=== PATIENT | male | born 1955 | race Caucasian/White ===

== ENCOUNTER 2017-02-14 08:00 | Outpatient (CLI) | payer MEDICAID | END 2017-02-14 08:01 | disposition home or self-care (01) | DX: I25.10 Atherosclerotic heart disease of native coronary artery without angina pectoris (principal); E78.5 Hyperlipidemia, unspecified; R73.9 Hyperglycemia, unspecified ==

== ENCOUNTER 2017-07-11 16:19 | Outpatient (CLI) | payer MEDICAID | END 2017-07-11 16:20 | disposition short-term general hospital (02) | LOC: EMS 16:19 | PROVIDERS: ATTEND Surgery | DX: R07.9 Chest pain, unspecified (principal); R11.0 Nausea; R42 Dizziness and giddiness; R61 Generalized hyperhidrosis | CPT/HCPCS: A0170; A0425; A0433 ==

== ENCOUNTER 2018-03-06 09:03 | Outpatient (CLI) | payer MEDICAID ==
[2018-03-06 12:46] LABS: BASOPHILS % (AUTO) 0.7 %; EOSINOPHILS # (AUTO) 0.1 10^3/uL (0.0-0.7); EOSINOPHILS % (AUTO) 1.9 %; HGB - HEMOGLOBIN 15.1 g/dL (14.0-18.0); LYMPHOCYTES # (AUTO) 1.6 10^3/uL (1.5-3.5); LYMPHOCYTES % (AUTO) 29.4 %; MEAN CORPUSCULAR HEMOGLOBIN 30.8 pg (27.0-31.0); MEAN CORPUSCULAR HGB CONC 33.5 g/dL (32.0-36.0); MEAN CORPUSCULAR VOLUME 91.9 fL (80.0-94.0); MEAN PLATELET VOLUME 8.5 fL (7.4-11.4); MONOCYTES # (AUTO) 0.7 10^3/uL (0.0-1.0); MONOCYTES % (AUTO) 12.5 %; NEUTROPHILS # (AUTO) 3.1 10^3/uL (1.5-6.6); NEUTROPHILS % (AUTO) 55.5 %; PLT - PLATELET COUNT 253 10^3/uL (130-450); RED BLOOD COUNT 4.92 10^6/uL (4.70-6.10); RED CELL DISTRIBUTION WIDTH 13.7 % (12.0-15.0); WHITE BLOOD COUNT 5.6 x10^3/uL (4.8-10.8)
[2018-03-06 12:54] LABS: ALBUMIN 4.6 g/dL (3.2-5.5); ALBUMIN/GLOBULIN RATIO 1.6 (1.0-2.2); ALKALINE PHOSPHATASE 55 IU/L (42-121); ALT ALANINE AMINOTRANSFERASE 27 IU/L (10-60); AST ASPARTATE AMINOTRANSFERASE 29 IU/L (10-42); BILIRUBIN,TOTAL 1.3 mg/dL (0.2-1.0); BUN - BLOOD UREA NITROGEN 20 mg/dL (6-20); CALCIUM 9.2 mg/dL (8.5-10.3); CARBON DIOXIDE - CO2 28 mmol/L (21-32); CHLORIDE 99 mmol/L (101-111); CHOL/HDL RATIO 3.2 (<5.0); CHOLESTEROL 173 mg/dL; CREATININE 1.1 mg/dL (0.6-1.2); GFR - MDRD 68 (>89); GLUCOSE 110 mg/dL (70-100); HDL CHOLESTEROL 54 mg/dL; LDL CHOLESTEROL,CALCULATED 101 mg/dL; LDL/HDL RATIO 1.9 (<3.6); SODIUM 134 mmol/L (135-145); TOTAL PROTEIN 7.4 g/dL (6.7-8.2); VLDL CHOLESTEROL 18 mg/dL
== END 2018-03-06 09:04 ==
LOC: LAB.N 09:03
PROVIDERS: ATTEND Nurse Practitioner Gerontology
DX: I25.10 Atherosclerotic heart disease of native coronary artery without angina pectoris (principal); R73.9 Hyperglycemia, unspecified; E78.5 Hyperlipidemia, unspecified; N40.0 Benign prostatic hyperplasia without lower urinary tract symptoms
CPT/HCPCS: 36415; 80053; 80061; 83721; 84153; 85025

== ENCOUNTER 2018-11-17 20:29 | Emergency (ER) | payer MEDICAID ==
[2018-11-17] MEDS ORDERED: HYDROmorphone 1 MG/ML CARPUJECT IM STA (21:20)
[2018-11-17] MEDS ORDERED: LIDOCAINE PATCH 5% TOP STA (21:20)
--- NOTE | 2018-11-17 22:04 | XRAY Report ---
Reason: SLIP/ FELL INJURING L SIDE RIB. PAIN/TENDERNESS L Procedure Date: 11/17/2018 Accession Number: [id number] / [id number] Procedure: XR - Ribs w/PA Chest LT CPT Code: FULL RESULT: EXAM: LEFT RIB RADIOGRAPHY EXAM DATE: 11/17/2018 09:52 PM. CLINICAL HISTORY: SLIP/ FELL INJURING L SIDE RIB. PAIN/TENDERNESS L. COMPARISON: CHEST 2 VIEW PA/LAT 11/19/2014 6:27 AM. TECHNIQUE: 1 view of the chest and 2 views of the ribs. FINDINGS: Bones: Mildly displaced fracture of the left lateral sixth rib. Likely nondisplaced fracture of the left lateral seventh rib. Lungs: Minimal left basilar atelectasis. Trace right effusion. No pneumothorax. Mediastinum: Heart and mediastinal contours are unremarkable. Other: None. IMPRESSION: Mildly displaced left lateral sixth rib fracture and likely nondisplaced left lateral seventh rib fracture. RADIA
[2018-11-17] MEDS ORDERED: HYDROmorphone 2 MG TABLET PO STA (22:17)
--- NOTE | 2018-11-17 22:24 | ED Physician Documentation ---
PD HPI TRUNK INJURY - Stated complaint Stated Complaint: RIB PX - Chief complaint Chief Complaint: Trauma Ch/Bk - History obtained from History obtained from: Patient, Family - History of Present Illness Location: Left chest Type of injury: Fall Timing - onset: How many days ago (2) Timing - duration: Days (2) Timing - details: Abrupt onset Pain level max: 10 Pain level now: 10 Quality: Pain, Aching Improved by: Rest Worsened by: Moving, Palpating Associated symtptoms: No: Weakness, Numbness, Tingling, Swelling, Discoloration, Feel faint, Syncope Contributing factors: No: Anticoagulated - Additional information Additional information: 63-year-old male states that he tripped fell landing on the whole of a fiberglass boat on his left ribs 2 days ago. Worsening pain since that time. States took Vicodin without relief at home. Review of Systems Constitutional: denies: Fever, Chills Cardiac: denies: Chest pain / pressure Respiratory: denies: Dyspnea, Hemoptysis, Wheezing GI: denies: Vomiting : denies: Dysuria Skin: denies: Rash Musculoskeletal: denies: Neck pain, Back pain Neurologic: denies: Headache PD PAST MEDICAL HISTORY - Past Medical History Cardiovascular: High cholesterol Respiratory: None Endocrine/Autoimmune: None GI: None : Benign prostate hypertrophy HEENT: None Derm: None - Past Surgical History Past Surgical History: Yes Ortho: Rotator cuff repair, Other - Present Medications Home Medications: Ambulatory Orders Medication Instructions Recorded Confirmed Aspirin [Aspir 81] 11/19/14 11/19/14 Azithromycin [Zithromax] 250 mg PO DAILY #4 tablet 11/19/14 Benzonatate [Tessalon Perle] 100 mg PO Q8H PRN #20 capsule 11/19/14 Simvastatin 11/19/14 11/19/14 Tamsulosin [Flomax] 11/19/14 11/19/14 guaiFENesin/CODEINE [Robitussin AC] 10 ml PO Q6H PRN #120 udc 11/19/14 Cyclobenzaprine [Flexeril] 10 mg PO TID PRN #20 tablet 11/17/18 HYDROmorphone [Dilaudid] 2 mg PO Q6H PRN #14 tablet 11/17/18 - Allergies Allergies/Adverse Reactions: Allergies Allergy/AdvReac Type Severity Reaction Status Date / Time Sulfa (Sulfonamide Allergy Hives Verified 11/17/18 20:42 Antibiotics) acetaminophen [From Tylenol] AdvReac Nausea Verified 11/17/18 20:42 ibuprofen AdvReac Nausea Verified 11/17/18 20:42 - Social History Does the pt smoke?: No Smoking Status: Never smoker Does the pt drink ETOH?: Yes Does the pt have substance abuse?: No - Immunizations Immunizations are current?: Yes PD ED PE NORMAL - Vitals Vital signs reviewed: Yes - General General: Alert and oriented X 3, No acute distress - HEENT HEENT: Moist mucous membranes - Neck Neck: Supple, no meningeal sign - Cardiac Cardiac: RRR, Strong equal pulses - Respiratory Respiratory: No respiratory distress, Clear bilaterally, Other (Tender to palpation over the left lateral ribs, approximately 5 through 10. No ecchymosis or crepitus) - Abdomen Abdomen: Soft, Non tender, Non distended - Back Back: No spinal TTP - Derm Derm: Warm and dry - Neuro Neuro: Alert and oriented X 3 Results - Vitals Vitals: Vital Signs - 24 hr 11/17/18 11/17/18 11/17/18 20:37 20:41 22:32 Temperature 36.8 C Heart Rate 71 71 70 Respiratory 18 18 16 Rate Blood Pressure 139/72 H 139/72 H 136/72 H O2 Saturation 97 97 98 Oxygen O2 Source Room air - Rads (name of study) L rib xray Radiology: Prelim report reviewed, EMP read contemporaneously, See rad report (Mildly displaced left lateral sixth rib fracture and likely nondisplaced left lateral seventh rib fracture) PD MEDICAL DECISION MAKING - ED course Complexity details: reviewed results, re-evaluated patient, considered differential, d/w patient ED course: 63-year-old male with left-sided rib fractures. Pain well controlled. Does have a long history of narcotic use, therefore hydromorphone will be used for a very short period of time. He has a tolerance from his years of prescription narcotic use. Has chronic back pain. He is well-appearing, nontoxic afebrile. No hypoxia. Patient counseled regarding signs and symptoms for which I believe and urgent re-evaluation would be necessary. Patient with good understanding of and agreement to plan and is comfortable going home at this time This document was made in part using voice recognition software. While efforts are made to proofread this document, sound alike and grammatical errors may occur. Departure - Departure Disposition: 01 Home, Self Care Clinical Impression: Closed rib fracture Qualifiers: Encounter type: initial encounter Rib fracture type: multiple ribs Laterality: left Qualified Code(s): S22.42XA - Multiple fractures of ribs, left side, initial encounter for closed fracture Condition: Good Instructions: ED Fx Rib Follow-Up: Ciera Tejada ARNP [Primary Care Provider] - Within 1 week Prescriptions: Cyclobenzaprine [Flexeril] 10 mg PO TID PRN #20 tablet PRN Reason: Spasms HYDROmorphone [Dilaudid] 2 mg PO Q6H PRN #14 tablet PRN Reason: rib pain Comments: Use the medication as prescribed. Return if you worsen. Follow-up with your doctor for further care. Your ribs may take several weeks to heal. Do not drink alcohol or drive while on narcotic pain medicine. Note that many narcotic pain relievers also contain tylenol/acetaminophen. Please ensure that your total dose of acetaminophen from all sources does not exceed 3 grams (3000mg) per day. You may constipated on this medication, take a stool softener such as "Colace" twice a day while you are on it. Also recommend a [id number] laxative such as senna or MiraLAX any day that you do not have a bowel movement. If you received narcotic pain medication in the emergency department, do not drive or operate machinery for the next 24 hours. Discharge Date/Time: 11/17/18 22:32
[2018-11-17 22:33] VITALS: BP 136/72
== END 2018-11-17 22:32 | disposition home or self-care (01) ==
LOC: ED 20:29
DX: S22.42XA Multiple fractures of ribs, left side, initial encounter for closed fracture (principal); W01.198A Fall on same level from slipping, tripping and stumbling with subsequent striking against other object, initial encounter; E78.00 Pure hypercholesterolemia, unspecified; Z79.82 Long term (current) use of aspirin
CPT/HCPCS: 71101; 96372; 99283; A9270; J1170

== ENCOUNTER 2018-11-27 14:53 | Outpatient (CLI) | payer MEDICAID ==
--- NOTE | 2018-11-27 17:27 | XRAY Report ---
Reason: L SIDE RIB PAIN Procedure Date: 11/27/2018 Accession Number: [id number] / [id number] Procedure: XRN - Ribs 2 View LT CPT Code: FULL RESULT: EXAM: LEFT RIB RADIOGRAPHY EXAM DATE: 11/27/2018 03:16 PM. CLINICAL HISTORY: L SIDE RIB PAIN. COMPARISON: RIBS W/PA CHEST LT 11/17/2018 9:42 PM. TECHNIQUE: 2 views. FINDINGS: Bones: As before, mildly displaced left lateral sixth rib fracture, contour deformity suggesting nondisplaced left lateral seventh rib fracture. Suture anchors at the left shoulder. Lungs: No detectable pneumothorax. Left basal opacity suggesting small effusion and atelectasis and/or infiltrate. Left lung volume is low. Right lung is excluded. Mediastinum: Heart and cardiomediastinal contours are unremarkable to the extent visualized. Other: None. IMPRESSION: 1. Similar mildly displaced left lateral sixth rib fracture and probable nondisplaced left lateral seventh rib fracture. 2. Similar left basal opacity suggesting small effusion and atelectasis and/or infiltrate. RADIA
== END 2018-11-27 14:54 | disposition home or self-care (01) ==
LOC: DI.N 14:53
PROVIDERS: ATTEND Nurse Practitioner Gerontology
DX: S22.42XD Multiple fractures of ribs, left side, subsequent encounter for fracture with routine healing (principal); R91.8 Other nonspecific abnormal finding of lung field

== ENCOUNTER 2019-07-04 12:30 | Outpatient (CLI) | payer MEDICAID ==
[2019-07-04 19:09] LABS: ALBUMIN 4.6 g/dL (3.2-5.5); ALBUMIN/GLOBULIN RATIO 1.4 (1.0-2.2); ALKALINE PHOSPHATASE 62 IU/L (42-121); ALT ALANINE AMINOTRANSFERASE 32 IU/L (10-60); AST ASPARTATE AMINOTRANSFERASE 32 IU/L (10-42); BILIRUBIN,TOTAL 0.9 mg/dL (0.2-1.0); BUN - BLOOD UREA NITROGEN 23 mg/dL (6-20); CALCIUM 9.5 mg/dL (8.5-10.3); CARBON DIOXIDE - CO2 29 mmol/L (21-32); CHLORIDE 104 mmol/L (101-111); CHOLESTEROL 179 mg/dL; GFR - MDRD 76 (>89); GLUCOSE 101 mg/dL (70-100); HDL CHOLESTEROL 60 mg/dL; LDL CHOLESTEROL,CALCULATED 96 mg/dL; LDL/HDL RATIO 1.6 (<3.6); SODIUM 138 mmol/L (135-145); TOTAL PROTEIN 7.8 g/dL (6.7-8.2); VLDL CHOLESTEROL 23 mg/dL
== END 2019-07-04 12:40 | disposition home or self-care (01) ==
LOC: LAB.N 12:30
PROVIDERS: ATTEND Nurse Practitioner Gerontology
DX: E78.5 Hyperlipidemia, unspecified (principal); Z79.899 Other long term (current) drug therapy; N40.0 Benign prostatic hyperplasia without lower urinary tract symptoms
CPT/HCPCS: 36415; 80053; 80061; 83721; 84153

== ENCOUNTER 2019-09-19 08:11 | Day surgery (SDC) | payer MEDICAID ==
[2019-09-19] MEDS ORDERED: LACTATED RINGERS 1,000 ML IV ONE (08:16)
[2019-09-19] MEDS ORDERED: MIDAZOLAM 2 MG/2 ML VIAL IVP ONE (09:35)
[2019-09-19] MEDS ORDERED: fentaNYL 250 MCG/5 ML VIAL IVP ONE (09:35)
[2019-09-19 10:33] VITALS: BP 120/69
== END 2019-09-19 08:12 | disposition home or self-care (01) ==
LOC: SDS 08:11
PROVIDERS: ATTEND Surgery
PROC: 0DJD8ZZ Inspection of Lower Intestinal Tract, Via Natural or Artificial Opening Endoscopic (ICD-10-PCS; principal; 2019-09-19 09:45)
DX: Z12.11 Encounter for screening for malignant neoplasm of colon (principal); I25.10 Atherosclerotic heart disease of native coronary artery without angina pectoris; N40.0 Benign prostatic hyperplasia without lower urinary tract symptoms
CPT/HCPCS: 45378; J3010; J7120

== ENCOUNTER 2020-04-13 10:41 | Outpatient (CLI) | payer MEDICAID | END 2020-04-13 10:42 | disposition home or self-care (01) | LOC: LAB 10:41 | PROVIDERS: ATTEND Family Medicine | DX: Z11.59 Encounter for screening for other viral diseases (principal) | CPT/HCPCS: 81599 ==

== ENCOUNTER 2021-01-28 08:29 | Outpatient (CLI) | payer MEDICAID ==
[2021-01-28 12:09] LABS: ALBUMIN 4.7 g/dL (3.2-5.5); ALBUMIN/GLOBULIN RATIO 1.6 (1.0-2.2); ALKALINE PHOSPHATASE 66 IU/L (42-121); ALT ALANINE AMINOTRANSFERASE 25 IU/L (10-60); AST ASPARTATE AMINOTRANSFERASE 27 IU/L (10-42); BILIRUBIN,TOTAL 0.8 mg/dL (0.2-1.0); BUN - BLOOD UREA NITROGEN 22 mg/dL (6-20); CALCIUM 9.6 mg/dL (8.5-10.3); CARBON DIOXIDE - CO2 27 mmol/L (21-32); CHLORIDE 102 mmol/L (101-111); CHOLESTEROL 181 mg/dL; CREATININE 0.9 mg/dL (0.6-1.2); GFR - MDRD 85 (>89); GLUCOSE 110 mg/dL (70-100); HDL CHOLESTEROL 60 mg/dL; LDL CHOLESTEROL,CALCULATED 98 mg/dL; LDL/HDL RATIO 1.6 (<3.6); POTASSIUM 3.9 mmol/L (3.5-5.0); SODIUM 137 mmol/L (135-145); TOTAL PROTEIN 7.6 g/dL (6.7-8.2); TRIGLYCERIDES 116 mg/dL; VLDL CHOLESTEROL 23 mg/dL
[2021-01-28 12:16] LABS: ESTIMATED AVERAGE GLUCOSE 126 mg/dL (70-100)
[2021-01-28 12:18] LABS: THYROID STIMULATING HORMONE 2.13 uIU/mL (0.34-5.60)
[2021-01-28 13:10] LABS: BASOPHILS % (AUTO) 0.4 %; EOSINOPHILS # (AUTO) 0.1 10^3/uL (0.0-0.7); HCT - HEMATOCRIT 48.3 % (42.0-52.0); HGB - HEMOGLOBIN 15.5 g/dL (14.0-18.0); LYMPHOCYTES # (AUTO) 1.5 10^3/uL (1.5-3.5); LYMPHOCYTES % (AUTO) 29.4 %; MEAN CORPUSCULAR HEMOGLOBIN 29.8 pg (27.0-31.0); MEAN CORPUSCULAR HGB CONC 32.1 g/dL (32.0-36.0); MEAN CORPUSCULAR VOLUME 92.9 fL (80.0-94.0); MEAN PLATELET VOLUME 10.5 fL (7.4-11.4); MONOCYTES # (AUTO) 0.7 10^3/uL (0.0-1.0); MONOCYTES % (AUTO) 13.8 %; NEUTROPHILS # (AUTO) 2.9 10^3/uL (1.5-6.6); NEUTROPHILS % (AUTO) 55.2 %; PLT - PLATELET COUNT 314 10^3/uL (130-450); RED CELL DISTRIBUTION WIDTH 12.7 % (12.0-15.0); WHITE BLOOD COUNT 5.2 x10^3/uL (4.8-10.8)
[2021-01-30 16:07] LABS: ALBUMIN 4.6 g/dL (3.8-4.8); ALPHA 1 GLOBULIN 0.3 g/dL (0.2-0.3); ALPHA 2 GLOBULIN 0.6 g/dL (0.5-0.9); BETA 1 GLOBULIN 0.5 g/dL (0.4-0.6); BETA 2 GLOBULIN 0.4 g/dL (0.2-0.5); GAMMA GLOBULIN 0.9 g/dL (0.8-1.7)
== END 2021-01-28 08:30 | disposition home or self-care (01) ==
LOC: LAB.N 08:29
PROVIDERS: ATTEND Internal Medicine
DX: I25.10 Atherosclerotic heart disease of native coronary artery without angina pectoris (principal); E78.5 Hyperlipidemia, unspecified; R73.9 Hyperglycemia, unspecified; G62.9 Polyneuropathy, unspecified; N40.0 Benign prostatic hyperplasia without lower urinary tract symptoms
CPT/HCPCS: 36415; 80053; 80061; 81599; 82043; 82570; 82607; 83036; 83721; 84153; 84155; 84165; 84443; 85025; 86334

== ENCOUNTER 2021-02-12 08:00 | Outpatient (CLI) | payer MEDICAID ==
[2021-02-12 17:15] LABS: MICROALBUM/CREATININE RATIO,UR 2.1 ug/mg (<30.0); MICROALBUMIN,URINE 0.4 mg/dL (0-300.0)
== END 2021-02-12 23:59 | disposition home or self-care (01) ==
LOC: LAB.WCP 08:00
PROVIDERS: ATTEND Internal Medicine
DX: R73.9 Hyperglycemia, unspecified (principal)
CPT/HCPCS: 82043; 82570

== ENCOUNTER 2022-06-14 10:14 | Outpatient (CLI) | payer MEDICAID ==
[2022-06-14 11:54] LABS: BASOPHILS % (AUTO) 0.5 %; EOSINOPHILS # (AUTO) 0.1 10^3/uL (0.0-0.7); EOSINOPHILS % (AUTO) 1.7 %; HCT - HEMATOCRIT 43.5 % (42.0-52.0); HGB - HEMOGLOBIN 14.4 g/dL (14.0-18.0); LYMPHOCYTES # (AUTO) 1.7 10^3/uL (1.5-3.5); LYMPHOCYTES % (AUTO) 28.8 %; MEAN CORPUSCULAR HEMOGLOBIN 30.4 pg (27.0-31.0); MEAN CORPUSCULAR HGB CONC 33.1 g/dL (32.0-36.0); MEAN CORPUSCULAR VOLUME 91.8 fL (80.0-94.0); MONOCYTES # (AUTO) 0.7 10^3/uL (0.0-1.0); MONOCYTES % (AUTO) 11.4 %; NEUTROPHILS # (AUTO) 3.4 10^3/uL (1.5-6.6); NEUTROPHILS % (AUTO) 57.3 %; PLT - PLATELET COUNT 281 10^3/uL (130-450); RED BLOOD COUNT 4.74 10^6/uL (4.70-6.10); RED CELL DISTRIBUTION WIDTH 13.1 % (12.0-15.0); WHITE BLOOD COUNT 5.9 x10^3/uL (4.8-10.8)
[2022-06-14 12:18] LABS: ALBUMIN 4.5 g/dL (3.2-5.5); ALBUMIN/GLOBULIN RATIO 1.6 (1.0-2.2); ALKALINE PHOSPHATASE 59 IU/L (42-121); ALT ALANINE AMINOTRANSFERASE 26 IU/L (10-60); AST ASPARTATE AMINOTRANSFERASE 24 IU/L (10-42); BILIRUBIN,TOTAL 0.8 mg/dL (0.2-1.0); BUN - BLOOD UREA NITROGEN 25 mg/dL (6-20); CALCIUM 9.2 mg/dL (8.5-10.3); CARBON DIOXIDE - CO2 27 mmol/L (21-32); CHLORIDE 99 mmol/L (101-111); CHOL/HDL RATIO 2.3 (<5.0); CHOLESTEROL 123 mg/dL; GFR - MDRD 75 (>89); GLUCOSE 103 mg/dL (70-100); HDL CHOLESTEROL 54 mg/dL; LDL CHOLESTEROL,CALCULATED 45 mg/dL; LDL/HDL RATIO 0.8 (<3.6); POTASSIUM 4.1 mmol/L (3.5-5.0); SODIUM 133 mmol/L (135-145); TOTAL PROTEIN 7.4 g/dL (6.7-8.2); TRIGLYCERIDES 121 mg/dL; VLDL CHOLESTEROL 24 mg/dL
[2022-06-15 09:55] LABS: ESTIMATED AVERAGE GLUCOSE 131 mg/dL (70-100); HEMOGLOBIN A1c% 6.2 % (4.27-6.07)
== END 2022-06-14 10:15 | disposition home or self-care (01) ==
LOC: LAB.N 10:14
PROVIDERS: ATTEND Internal Medicine
DX: E78.5 Hyperlipidemia, unspecified (principal); R73.01 Impaired fasting glucose; N40.1 Benign prostatic hyperplasia with lower urinary tract symptoms; N18.2 Chronic kidney disease, stage 2 (mild)
CPT/HCPCS: 36415; 80053; 80061; 82043; 82570; 83036; 83721; 84153; 85025

== ENCOUNTER 2022-06-16 12:00 | Outpatient (CLI) | payer MEDICAID ==
[2022-06-16 17:50] LABS: CREATININE,URINE 68.2 mg/dL; MICROALBUM/CREATININE RATIO,UR 2.9 ug/mg (<30.0); MICROALBUMIN,URINE 0.2 mg/dL (0-300.0)
== END 2022-06-16 23:59 | disposition home or self-care (01) ==
LOC: LAB.WCP 12:00
PROVIDERS: ATTEND Internal Medicine
DX: R73.01 Impaired fasting glucose (principal)
CPT/HCPCS: 82043; 82570

== ENCOUNTER 2022-07-04 12:19 | Emergency (ER) | payer MEDICAID ==
[2022-07-04 12:47] LABS: BASOPHILS % (AUTO) 0.5 %; EOSINOPHILS # (AUTO) 0.1 10^3/uL (0.0-0.7); EOSINOPHILS % (AUTO) 1.4 %; HGB - HEMOGLOBIN 14.9 g/dL (14.0-18.0); LYMPHOCYTES # (AUTO) 1.4 10^3/uL (1.5-3.5); LYMPHOCYTES % (AUTO) 22.7 %; MEAN CORPUSCULAR HEMOGLOBIN 30.6 pg (27.0-31.0); MEAN CORPUSCULAR HGB CONC 33.1 g/dL (32.0-36.0); MEAN CORPUSCULAR VOLUME 92.4 fL (80.0-94.0); MEAN PLATELET VOLUME 9.5 fL (7.4-11.4); MONOCYTES # (AUTO) 0.7 10^3/uL (0.0-1.0); MONOCYTES % (AUTO) 10.6 %; NEUTROPHILS % (AUTO) 64.5 %; PLT - PLATELET COUNT 290 10^3/uL (130-450); RED BLOOD COUNT 4.87 10^6/uL (4.70-6.10); RED CELL DISTRIBUTION WIDTH 12.9 % (12.0-15.0); WHITE BLOOD COUNT 6.2 x10^3/uL (4.8-10.8)
[2022-07-04 13:02] LABS: ALBUMIN 4.5 g/dL (3.2-5.5); ALBUMIN/GLOBULIN RATIO 1.5 (1.0-2.2); BILIRUBIN,TOTAL 0.6 mg/dL (0.2-1.0); CALCIUM 9.8 mg/dL (8.5-10.3); POTASSIUM 4.7 mmol/L (3.5-5.0); TOTAL PROTEIN 7.5 g/dL (6.7-8.2)
[2022-07-04] MEDS ORDERED: MORPHINE 2 MG/ML CARPUJECT IVP STA (14:34)
[2022-07-04] MEDS ORDERED: ONDANSETRON 4 MG/2 ML VIAL IVP STA (14:34)
[2022-07-04] MEDS ORDERED: SODIUM CHLORIDE 0.9% 1,000 ML IV STA (14:34)
--- NOTE | 2022-07-04 14:37 | ED Physician Documentation ---
PD HPI ABD PAIN - Stated complaint Stated Complaint: ABD PX - Chief complaint Chief Complaint: Abd Pain - History obtained from History obtained from: Patient - Additional information Additional information: Patient is a 66-year-old male presenting for evaluation of right lower quadrant pain that is been intermittent for a few weeks but more persistent over the last few days. It is sharp in nature. It is worse when laying on that side. He denies associated nausea, vomiting, diarrhea. His last bowel movement was yesterday. He denies dysuria or hematuria. He reports that laying on his left side makes it feel better. He has not tried anything for the pain. He denies previous abdominal surgeries. He does take Plavix for a history of a TIA. He denies any recent injury or trauma. He denies chest pain, difficulty breathing, fever, back pain, lower extremity pain. Review of Systems Constitutional: denies: Fever Nose: denies: Congestion Cardiac: denies: Chest pain / pressure Respiratory: denies: Dyspnea GI: reports: Abdominal Pain. denies: Nausea, Vomiting : denies: Dysuria, Hematuria Musculoskeletal: denies: Back pain Neurologic: denies: Headache PD PAST MEDICAL HISTORY - Past Medical History Cardiovascular: High cholesterol Respiratory: Pneumonia Endocrine/Autoimmune: None GI: Colon polyps : None HEENT: None Psych: None Musculoskeletal: Osteoarthritis, Chronic back pain Derm: None - Past Surgical History Past Surgical History: Yes Ortho: Rotator cuff repair, Spine surgery, Other - Present Medications Home Medications: Ambulatory Orders Medication Instructions Recorded Confirmed Aspirin [Aspir 81] 81 mg PO DAILY 11/19/14 09/19/19 Tamsulosin [Flomax] 0.4 mg PO DAILY 11/19/14 09/19/19 Cyclobenzaprine [Flexeril] 10 mg PO TID PRN #20 tablet 11/17/18 09/18/19 Atorvastatin Calcium 80 mg PO DAILY 09/19/19 09/19/19 Zolpidem Tartrate [Edluar] 10 mg PO DAILY PRN 09/19/19 09/19/19 polyethylene glycoL 3350 [Miralax] 17 gm PO DAILY PRN #1 ml 07/04/22 - Allergies Allergies/Adverse Reactions: Allergies Allergy/AdvReac Type Severity Reaction Status Date / Time Sulfa (Sulfonamide Allergy Hives Verified 07/04/22 12:33 Antibiotics) acetaminophen [From Tylenol] AdvReac Nausea Verified 07/04/22 12:33 ibuprofen AdvReac Nausea Verified 07/04/22 12:33 - Social History Does the pt smoke?: No Smoking Status: Never smoker Does the pt drink ETOH?: Yes Does the pt have substance abuse?: No - Immunizations Immunizations are current?: Yes PD ED PE NORMAL - General General: Alert and oriented X 3, No acute distress, Well developed/nourished - HEENT HEENT: Atraumatic, Moist mucous membranes - Neck Neck: Supple, no meningeal sign - Cardiac Cardiac: RRR, No murmur, Strong equal pulses - Respiratory Respiratory: No respiratory distress, Clear bilaterally - Abdomen Abdomen: Normal bowel sounds, Soft, Non distended, Other (No masses, no hernia, mild right lower quadrant tenderness to palpation with no rebound or guarding). No: Non tender - Back Back: Other (Right CVA tenderness) - Derm Derm: Warm and dry - Extremities Extremities: No edema - Neuro Neuro: Normal speech Results - Vitals Vitals: Vital Signs - 24 hr 07/04/22 07/04/22 12:30 16:25 Temperature 36.3 C L 36.8 C Heart Rate 76 68 Respiratory 16 16 Rate Blood Pressure 137/76 H 135/81 H O2 Saturation 97 99 Oxygen O2 Source Room air - Labs Labs: Laboratory Tests 07/04/22 07/04/22 12:42 12:42 WBC 6.2 RBC 4.87 Hgb 14.9 Hct 45.0 MCV 92.4 MCH 30.6 MCHC 33.1 RDW 12.9 Plt Count 290 MPV 9.5 Neut # (Auto) 4.0 Lymph # (Auto) 1.[address] [place] # (Auto) 0.7 Eos # (Auto) 0.1 Baso # (Auto) 0.0 Absolute Nucleated RBC 0.00 Nucleated RBC % 0.0 Sodium 136 Potassium 4.7 Chloride 100 L Carbon Dioxide 29 Anion Gap 7.0 BUN 23 H Creatinine 1.0 Estimated GFR (MDRD) 75 L Glucose 102 H Calcium 9.8 Total Bilirubin 0.6 AST 22 ALT 24 Alkaline Phosphatase 77 Total Protein 7.5 Albumin 4.5 Globulin 3.0 Albumin/Globulin Ratio 1.5 Lipase 40 PD MEDICAL DECISION MAKING - ED course Complexity details: reviewed results, re-evaluated patient, d/w patient ED course: Patient with right-sided abdominal pain which is been intermittent for weeks. Has mild tenderness on exam but overall exam is reassuring and he does not appear to have a acute abdomen. Of vital signs and labs are reassuring. CT scan is negative for appendicitis and no signs of a stone. There is a fair amount of stool burden on the right side. I reviewed these findings with the patient and discussed plan for MiraLAX and close outpatient follow-up. He is c omfortable plan for discharge and advised on strict return precautions. Departure - Departure Disposition: 01 Home, Self Care Clinical Impression: Right sided abdominal pain Constipation Qualifiers: Constipation type: unspecified constipation type Qualified Code(s): K59.00 - Constipation, unspecified Condition: Stable Instructions: ED Constipation, ED Abdominal Pain Unkn Cause Male Prescriptions: polyethylene glycoL 3350 [Miralax] 17 gm PO DAILY PRN #1 ml PRN Reason: Constipation Comments: You were evaluated for right-sided abdominal pain. Your labs are reassuring and your vital signs were stable. A CT scan was obtained and your appendix appears normal. There is also no signs of a kidney stone. You do have a fair amount of stool concerning for constipation On the right side of your abdomen. You may benefit from regular MiraLAX use for the next several days. I sent prescription to the [facility] in [place]. Please also make sure that you stay well-hydrated. If you have any new or worsening symptoms please consider return to the ER. Discharge Date/Time: 07/04/22 17:03
[2022-07-04] MEDS ORDERED: MORPHINE 2 MG/ML CARPUJECT IM STA (15:52)
[2022-07-04] MEDS ORDERED: ONDANSETRON ODT 4 MG TABLET TL STA (15:52)
[2022-07-04 16:25] VITALS: BP 135/81
--- NOTE | 2022-07-04 16:35 | CT Report ---
PROCEDURE: Abdomen/Pelvis WO INDICATIONS: R sided pain TECHNIQUE: Noncontrast 5 mm thick sections acquired from the diaphragms to the symphysis. 5 mm coronal and sagi ttal reformats were then performed. For radiation dose reduction, the following was used: automated exposure control, adjustment of mA and/or kV according to patient size. COMPARISON: None. FINDINGS: Image quality: Excellent. ABDOMEN: Lung bases: Bibasilar atelectasis. No pleural effusion. Heart size is normal. Solid organs: Liver and spleen are normal in size. Gallbladder is unremarkable. Pancreas is normal in contours. No adrenal nodules. Kidneys are normal in size, without hydronephrosis or nephrolithi asis. Peritoneum and bowel: Unenhanced bowel loops demonstrate normal wall thickness and caliber. Small du odenal diverticulum. Normal appendix. Prominent stool in the right colon. No free fluid or air. Nodes and vessels: No retroperitoneal or mesenteric adenopathy by size criteria. Aorta and inferior vena cava are normal in caliber. The proximal opacified atherosclerotic plaque. Miscellaneous: Small umbilical hernia. PELVIS: Genitourinary: Bladder wall thickness is normal. Miscellaneous: No inguinal hernias or adenopathy. Left gluteus lipoma. Bones: No suspicious bony lesions. Minimal height loss at L1. Anterolisthesis of L3 on L4 measuring 0.6 cm. Large vertebral body ossifies. IMPRESSION: 1. The appendix is normal. No free fluid. 2. Prominent stool in the colon. This raises the possibility of constipation. 3. No kidney stones. No hydronephrosis. Reviewed by: Len Keenan MD on 07/04/2022 4:34 PM PDT Approved by: Len Keenan MD on 07/04/2022 4:34 PM PDT Station ID: [id number]
== END 2022-07-04 17:03 | disposition home or self-care (01) ==
LOC: ED 12:19
DX: K59.00 Constipation, unspecified (principal)
CPT/HCPCS: 36415; 74176; 80053; 83690; 85025; 96372; 99282; 99284; Q0162

== ENCOUNTER 2022-07-22 08:00 | Outpatient (CLI) | payer MEDICARE, MEDICAID ==
--- NOTE | 2022-07-23 01:51 | XRAY Report ---
PROCEDURE: Elbow 3 View RT INDICATIONS: RIGHT ELBOW PAIN TECHNIQUE: 3 views of the elbow were acquired. COMPARISON: None. FINDINGS: Bones: No fractures or dislocations. There is mild osteophytosis. No suspicious bony lesions. Soft tissues: No elbow joint effusion. No suspicious soft tissue calcifications. IMPRESSION: 1. No fracture or dislocation. 2. Mild osteophytosis compatible with mild osteoarthritic changes. Reviewed by: Andrei Dubose MD on 07/23/2022 1:49 AM PDT Approved by: Andrei Dubose MD on 07/23/2022 1:49 AM PDT Station ID: [id number]
== END 2022-07-22 23:59 | disposition home or self-care (01) ==
LOC: DI.N 08:00
PROVIDERS: ATTEND Family Medicine
DX: M25.721 Osteophyte, right elbow (principal)

== ENCOUNTER 2022-10-18 17:57 | Outpatient (CLI) | payer MEDICARE, MEDICAID ==
--- NOTE | 2022-10-19 13:03 | XRAY Report ---
PROCEDURE: Nasal Bones INDICATIONS: CONTUSION OF OTHER PART OF HEAD, INITIAL ENCOUNTER TECHNIQUE: 3 views of the nasal bones acquired. COMPARISON: None FINDINGS: Bones: No fractures or dislocations. Nasal septum is midline. Normal nasociliary nerve grooves are noted. Soft tissues: No suspicious soft tissue calcifications. IMPRESSION: Unremarkable nasal bone radiographs Reviewed by: Brendan Gonzalez MD on 10/19/2022 12:02 PM [place] Approved by: Brendan Gonzalez MD on 10/19/2022 12:02 PM [facility] Station ID: [id number]
--- NOTE | 2022-10-19 13:06 | XRAY Report ---
PROCEDURE: Knee 2 View RT INDICATIONS: CONTUSION OF RIGHT KNEE, INITIAL ENCOUNTER TECHNIQUE: 2 views of the right knee(s) were acquired. COMPARISON: None. FINDINGS: Bones: No fractures or dislocations. No suspicious bony lesions. Soft tissues: Diffuse atherosclerotic vascular calcification noted. No joint effusion IMPRESSION: Calcific atherosclerosis without fracture or joint effusion Reviewed by: Brendan Gonzalez MD on 10/19/2022 12:05 PM [place] Approved by: Brendan Gonzalez MD on 10/19/2022 12:05 PM [place] Station ID: [id number]
--- NOTE | 2022-10-19 13:13 | XRAY Report ---
PROCEDURE: Ribs w/PA Chest LT INDICATIONS: RIB PAIN, LEFT SIDED TECHNIQUE: 2 views of the left ribs were acquired, along with a single view chest. COMPARISON: None FINDINGS: Surgical changes and devices: No. Left scapular orthopedic screws are present. Ne. Bones and chest wall: Old healed left-sided rib fractures noted involving the lateral sixth, seventh and ninth/10th ribs. No evidence of acute fracture . Lungs and pleura: Left-sided basilar atelectasis and or infiltrate present. Right lung and pleural sp saji clear Mediastinum: Mediastinal contours appear normal. Heart size is normal. IMPRESSION: Old healed left-sided rib fractures without evidence of acute displaced fracture. Left basilar platelike atelectasis and or infiltrate. Reviewed by: Brendan Gonazlez MD on 10/19/2022 12:12 PM [place] Approved by: Brendan Gonzalez MD on 10/19/2022 12:12 PM [facility] Station ID: [id number]
== END 2022-10-18 17:58 | disposition home or self-care (01) ==
LOC: DI.N 17:57 → DI 17:58
PROVIDERS: ATTEND Nurse Practitioner
DX: R07.81 Pleurodynia (principal); S00.83XA Contusion of other part of head, initial encounter; S80.01XA Contusion of right knee, initial encounter; S22.42XD Multiple fractures of ribs, left side, subsequent encounter for fracture with routine healing; J98.11 Atelectasis; I70.201 Unspecified atherosclerosis of native arteries of extremities, right leg

== ENCOUNTER 2023-03-29 10:49 | Outpatient (CLI) | payer MEDICAID ==
[2023-03-29 11:13] LABS: BASOPHILS % (AUTO) 0.3 %; EOSINOPHILS # (AUTO) 0.1 10^3/uL (0.0-0.7); EOSINOPHILS % (AUTO) 1.9 %; HCT - HEMATOCRIT 44.5 % (42.0-52.0); HGB - HEMOGLOBIN 14.5 g/dL (14.0-18.0); LYMPHOCYTES # (AUTO) 1.4 10^3/uL (1.5-3.5); LYMPHOCYTES % (AUTO) 24.3 %; MEAN CORPUSCULAR HEMOGLOBIN 30.3 pg (27.0-31.0); MEAN CORPUSCULAR HGB CONC 32.6 g/dL (32.0-36.0); MEAN CORPUSCULAR VOLUME 92.9 fL (80.0-94.0); MEAN PLATELET VOLUME 9.6 fL (7.4-11.4); MONOCYTES # (AUTO) 0.6 10^3/uL (0.0-1.0); MONOCYTES % (AUTO) 9.6 %; NEUTROPHILS # (AUTO) 3.8 10^3/uL (1.5-6.6); NEUTROPHILS % (AUTO) 63.7 %; PLT - PLATELET COUNT 275 10^3/uL (130-450); RED BLOOD COUNT 4.79 10^6/uL (4.70-6.10); RED CELL DISTRIBUTION WIDTH 13.7 % (12.0-15.0); WHITE BLOOD COUNT 5.9 x10^3/uL (4.8-10.8)
[2023-03-29 11:23] LABS: ALBUMIN 4.2 g/dL (3.2-5.5); ALBUMIN/GLOBULIN RATIO 1.3 (1.0-2.2); ALKALINE PHOSPHATASE 59 IU/L (42-121); ALT ALANINE AMINOTRANSFERASE 25 IU/L (10-60); AST ASPARTATE AMINOTRANSFERASE 24 IU/L (10-42); BILIRUBIN,TOTAL 0.8 mg/dL (0.2-1.0); BUN - BLOOD UREA NITROGEN 25 mg/dL (6-20); CALCIUM 9.3 mg/dL (8.5-10.3); CARBON DIOXIDE - CO2 28 mmol/L (21-32); CHLORIDE 104 mmol/L (101-111); CHOL/HDL RATIO 2.2 (<5.0); CHOLESTEROL 123 mg/dL; GFR - MDRD 75 (>89); GLUCOSE 108 mg/dL (70-100); HDL CHOLESTEROL 57 mg/dL; LDL CHOLESTEROL,CALCULATED 49 mg/dL; LDL/HDL RATIO 0.9 (<3.6); POTASSIUM 4.3 mmol/L (3.5-5.0); SODIUM 137 mmol/L (135-145); TOTAL PROTEIN 7.5 g/dL (6.7-8.2); TRIGLYCERIDES 83 mg/dL; VLDL CHOLESTEROL 17 mg/dL
[2023-03-29 11:34] LABS: ESTIMATED AVERAGE GLUCOSE 126 mg/dL (70-100)
[2023-03-29 17:43] LABS: CREATININE,URINE 134.7 mg/dL; MICROALBUMIN,URINE 0.4 mg/dL (0-300.0)
== END 2023-03-29 10:50 | disposition home or self-care (01) ==
LOC: LAB 10:49
PROVIDERS: ATTEND Internal Medicine
DX: E78.5 Hyperlipidemia, unspecified (principal); R73.01 Impaired fasting glucose; N40.1 Benign prostatic hyperplasia with lower urinary tract symptoms; I65.22 Occlusion and stenosis of left carotid artery
CPT/HCPCS: 36415; 80053; 80061; 82043; 82570; 83036; 83721; 84153; 85025

== ENCOUNTER 2023-04-27 10:00 | Outpatient (CLI) | payer MEDICARE, MEDICAID | END 2023-04-27 10:15 | disposition home or self-care (01) | LOC: LAB.N 10:00 | PROVIDERS: ATTEND Nurse Practitioner | DX: M25.421 Effusion, right elbow (principal) | CPT/HCPCS: 87070; 87205 ==

== ENCOUNTER 2023-12-13 07:15 | Outpatient (CLI) | payer MEDICAID ==
--- NOTE | 2023-12-13 14:58 | XRAY Report ---
PROCEDURE: Ribs w/PA Chest 3+V RT INDICATIONS: CONTUSION OF THORAX, UNSPECIFIED TECHNIQUE: 2 views of the ribs were acquired, along with a single view chest. COMPARISON: None. FINDINGS: Surgical changes and devices: None. Bones and chest wall: There are right anterior lateral fifth, sixth and possibly seventh rib fractur es. They are minimally displaced.. No suspicious bony lesions. Overlying soft tissues appear unrema rkable. Lungs and pleura: No pleural effusions or pneumothorax. Lungs appear clear. Mediastinum: Mediastinal contours appear normal. Heart size is normal. IMPRESSION: Minimally displaced fifth, sixth and suspected seventh rib fractures. Reviewed by: Trini Ag MD on 12/13/2023 2:57 PM PST Approved by: Trini Ag MD on 12/13/2023 2:57 PM [facility] Station ID: [id number]
== END 2023-12-13 07:30 | disposition home or self-care (01) ==
LOC: DI.N 07:15
PROVIDERS: ATTEND Nurse Practitioner
DX: S22.41XA Multiple fractures of ribs, right side, initial encounter for closed fracture (principal)

== ENCOUNTER 2024-01-04 18:23 | Outpatient (CLI) | payer MEDICAID ==
--- NOTE | 2024-01-05 16:54 | Ultrasound Report ---
PROCEDURE: Carotid Doppler Complete INDICATIONS: Carotid stenosis, hyperlipidemia TECHNIQUE: Color and pulse Doppler interrogation was performed of both carotid systems, with image documentation and velocity measurements. COMPARISON: None. FINDINGS: Right side: Brachial blood pressure: 144/72 mm Hg. Common carotid artery peak systolic velocity: 167 cm/sec. Internal carotid artery peak systolic velocity: 80 cm/sec. Internal carotid artery end diastolic velocity: 18 cm/sec. External carotid artery peak systolic velocity: 126 cm/sec. ICA/CCA peak systolic ratio: 0.5 . Linares scale imaging description: Udtd-ef-ygbydfsu amount of atherosclerotic plaque. Percent internal carotid artery stenosis: Less than 50%. Vertebral artery: Flow direction is antegrade. Left side: Brachial blood pressure: 129/71 mm Hg. Common carotid artery peak systolic velocity: 126 cm/sec. Internal carotid artery peak systolic velocity: 99 cm/sec. Internal carotid artery end diastolic velocity: 25 cm/sec. External carotid artery peak systolic velocity: 1.7 cm/sec. ICA/CCA peak systolic ratio: 0.8 . Linares scale imaging description: Jfim-eq-muzxjohs amount of atherosclerotic plaque. Percent internal carotid artery stenosis: Less than 50%. Vertebral artery: Flow direction is antegrade. IMPRESSION: 1. In the right internal carotid artery, there is less than 50 percent stenosis based on peak systoli c velocity criteria. 2. In the left internal carotid artery, there is less than 50 percent stenosis based on peak systolic velocity criteria. 3. Antegrade blood flow within the right vertebral artery. 4. Antegrade blood flow within the left vertebral artery. The estimate of stenosis included in the report of the imaging study was calculated using the [facility]-end orsed standards of carotid artery stenosis. Reviewed by: Margarito Yanes MD on 01/05/2024 4:52 PM PDT Approved by: Margarito Yanes MD on 01/05/2024 4:52 PM PDT Station ID: [id number]
== END 2024-01-04 18:24 | disposition home or self-care (01) ==
LOC: DI 18:23
PROVIDERS: ATTEND Internal Medicine
DX: I65.23 Occlusion and stenosis of bilateral carotid arteries (principal)
CPT/HCPCS: 93880

== ENCOUNTER 2024-03-01 12:27 | Outpatient (CLI) | payer MEDICAID ==
[2024-03-01 12:39] LABS: BASOPHILS % (AUTO) 0.4 %; EOSINOPHILS # (AUTO) 0.1 10^3/uL (0.0-0.7); EOSINOPHILS % (AUTO) 1.9 %; HCT - HEMATOCRIT 42.8 % (42.0-52.0); HGB - HEMOGLOBIN 13.8 g/dL (14.0-18.0); LYMPHOCYTES # (AUTO) 1.3 10^3/uL (1.5-3.5); LYMPHOCYTES % (AUTO) 23.6 %; MEAN CORPUSCULAR HEMOGLOBIN 29.9 pg (27.0-31.0); MEAN CORPUSCULAR HGB CONC 32.2 g/dL (32.0-36.0); MEAN CORPUSCULAR VOLUME 92.6 fL (80.0-94.0); MEAN PLATELET VOLUME 9.2 fL (7.4-11.4); MONOCYTES # (AUTO) 0.6 10^3/uL (0.0-1.0); MONOCYTES % (AUTO) 10.6 %; NEUTROPHILS # (AUTO) 3.4 10^3/uL (1.5-6.6); NEUTROPHILS % (AUTO) 63.3 %; PLT - PLATELET COUNT 265 10^3/uL (130-450); RED BLOOD COUNT 4.62 10^6/uL (4.70-6.10); RED CELL DISTRIBUTION WIDTH 13.3 % (12.0-15.0); WHITE BLOOD COUNT 5.4 x10^3/uL (4.8-10.8)
[2024-03-01 12:51] LABS: ALBUMIN 4.4 g/dL (3.2-5.5); ALBUMIN/GLOBULIN RATIO 1.7 (1.0-2.2); ALKALINE PHOSPHATASE 68 IU/L (42-121); ALT ALANINE AMINOTRANSFERASE 24 IU/L (10-60); AST ASPARTATE AMINOTRANSFERASE 23 IU/L (10-42); BILIRUBIN,TOTAL 0.9 mg/dL (0.2-1.0); BUN - BLOOD UREA NITROGEN 22 mg/dL (6-20); CALCIUM 9.6 mg/dL (8.5-10.3); CARBON DIOXIDE - CO2 30 mmol/L (21-32); CHLORIDE 101 mmol/L (101-111); CHOL/HDL RATIO 2.4 (<5.0); CHOLESTEROL 125 mg/dL; GFR - MDRD 75 (>89); GLUCOSE 112 mg/dL (74-104); HDL CHOLESTEROL 53 mg/dL; LDL CHOLESTEROL,CALCULATED 47 mg/dL; LDL/HDL RATIO 0.9 (<3.6); POTASSIUM 4.1 mmol/L (3.5-4.5); SODIUM 135 mmol/L (135-145); TRIGLYCERIDES 126 mg/dL (48-352); VLDL CHOLESTEROL 25 mg/dL
[2024-03-01 13:21] LABS: ESTIMATED AVERAGE GLUCOSE 134 mg/dL (70-100); HEMOGLOBIN A1c% 6.3 % (4.27-6.07)
== END 2024-03-01 12:28 | disposition home or self-care (01) ==
LOC: LAB 12:27
PROVIDERS: ATTEND Internal Medicine
DX: R73.03 Prediabetes (principal); E78.5 Hyperlipidemia, unspecified; N40.1 Benign prostatic hyperplasia with lower urinary tract symptoms; I65.29 Occlusion and stenosis of unspecified carotid artery
CPT/HCPCS: 36415; 80053; 80061; 82043; 82570; 83036; 83721; 84153; 85025

== ENCOUNTER 2024-03-02 08:00 | Outpatient (CLI) | payer MEDICARE, MEDICAID ==
[2024-03-02 16:56] LABS: CREATININE,URINE 124.7 mg/dL
[2024-03-02 17:11] LABS: MICROALBUMIN,URINE < 0.7 mg/dL
== END 2024-03-02 23:59 | disposition home or self-care (01) ==
LOC: LAB 08:00
PROVIDERS: ATTEND Internal Medicine
DX: R73.03 Prediabetes (principal)
CPT/HCPCS: 82043; 82570